=== PATIENT | male | born 1990 | race African-American/Black ===

== ENCOUNTER 2016-09-04 12:20 | Emergency (ER) | payer SELFPAY ==
[~2016-09-04] VITALS: Ht 182.9 cm; Wt 78.2 kg
[~2016-09-04 12:20] MED LIST: BACTRIM,SEPT1 TABLET PO; BENTYL20 MG PO; CLEOCIN300 MG PO; IBUPROFEN600 MG PO; INDOCIN25 MG PO; MOBIC15 MG PO; MOTRIN800 MG PO; NAPROXEN500 MG PO; NORCO 5/3251 TABLET PO; PEN-VEE K,VEET500 MG PO; TAMIFLU75 MG PO; TRAMADOL HCL50 MG PO; TYLENOL REGULA325 MG PO; TYLENOL WITH C1 EACH PO; ULTRAM50 MG PO; VALIUM2 MG PO; VENTOLIN HFA18 GM IH; ZOFRAN ODT4 MG PO; ZOFRAN4 MG PO
[2016-09-04] MEDS ORDERED: IBUPROFEN800 MG PO (15:46)
[2016-09-04 15:58] VITALS: BP 124/76
== END 2016-09-04 15:59 | disposition home or self-care (01) ==
LOC: EME 12:20
DX: M79.622 Pain in left upper arm (principal); M25.512 Pain in left shoulder; M79.645 Pain in left finger(s); Y93.67 Activity, basketball
CPT/HCPCS: 99281; 99283